=== PATIENT | male | born 1975 | race African-American/Black ===

== ENCOUNTER 2018-01-11 00:09 | Emergency (ER) | payer OTHER, MEDICAID ==
[~2018-01-11] VITALS: Ht 177.8 cm; Wt 100.0 kg
[2018-01-11 02:40] VITALS: BP 133/76
== END 2018-01-11 03:02 | disposition home or self-care (01) ==
LOC: ER 00:43
DX: S41.112A Laceration without foreign body of left upper arm, initial encounter (principal); S00.83XA Contusion of other part of head, initial encounter; F17.200 Nicotine dependence, unspecified, uncomplicated; Y04.0XXA Assault by unarmed brawl or fight, initial encounter; Y93.89 Activity, other specified; Y92.89 Other specified places as the place of occurrence of the external cause; Y99.8 Other external cause status
CPT/HCPCS: 12001; 70486; 99284